=== PATIENT | female | born 1985 ===

== ENCOUNTER 2019-08-23 10:35 | Inpatient (IN) | payer BC ==
[2019-08-23] MEDS ORDERED: ALBUTEROL HFA INHALER INHALATION PRN (15:15)
[2019-08-23] MEDS ORDERED: NALOXONE 0.4 MG/ML 1 ML VIAL IV PRN (15:17)
[2019-08-23] MEDS ORDERED: HYDROcodone/APAP 5-325MG 1 EACH TAB PO PRN (15:17)
[2019-08-23] MEDS ORDERED: CYCLOBENZAPRINE 5 MG TAB PO PRN (15:24)
[2019-08-23] MEDS ORDERED: BETAMETHASONE DIPROPIONATE 0.05% CREAM 15 GM TUBE TOPICAL PRN (15:24)
[2019-08-23] MEDS ORDERED: FLUTICASONE 50MCG/SPRAY NASAL 16GM EA NOSTRIL PRN (15:24)
[2019-08-23] MEDS: ENOXAPARIN 40 MG/0.4 ML SYRINGE SQ SCH (15:32)
[2019-08-23] MEDS: SODIUM CHLORIDE 0.9% 1,000 ML IV SCH ×2 (15:32→22:50)
[2019-08-23] MEDS: ALBUTEROL HFA INHALER INHALATION SCH ×2 (15:34→20:01)
--- NOTE | 2019-08-23 15:49 | P.HPIM ---
History of Present Illness H&P Date: 08/23/19 Chief Complaint: shortness of breath Patient is a 34-year-old female with a past medical history of asthma that has moderate persistent asthma has been well controlled on her current medications and no hospitalizations in the last 4 years, GERD, and bipolar disorder who presented initially to [facility] with complaints of fever, cough, and shortness of breath. There she underwent an extensive evaluation. She had been found to be 87% on room air with ambulation and at rest was 90%. Per verbal report her chest x-ray showed bilateral infiltrates. Her COVID 19 tests came back positive. She was found have a white blood cell count 8.5 hemoglobin 14.3 hematocrit 45.4 platelets 163. In urgent 517 lactic acid 2, PT 11.9, INR 1.1, CRP 83, pro calcitonin 0.07, troponin 0.01, CK 34, magnesium 1.7, triglycerides 200, sodium 137, potassium 3.9, chloride 107, bicarb 16, BUN 14, creatinine 0.84, glucose 141, ferritin 231. There she received albuterol and a dose of Solu-Medrol. They didn't have beds available since she was transferred to our facility as part of the Covid relief effort. Patient seen and examined at bedside. She reports that for the last 2 weeks she isn't having muscle cramping, cough, and shortness of breath. She has been off of work. She was feeling okay up until yesterday when her shortness of breath became severely worse. She reports that is worse with movement and better with rest. Does not change with changes in position. She has noticed some wheezing. Her cough is nonproductive. She reports that she had 2 episodes of diarrhea over the last 24 hours. She is no longer having muscle cramping. She had a fever of 101 for her T-max over the last 1 week. She does feel lightheaded and dizzy upon standing and feels dehydrated. She denies any nausea or vomiting, belly pain, overt chest pain but does feel some tightness when trying to take a deep breath. She is feeling very winded and overall ill. She states that her eating and drinking for with diminished appetite. The last time she was hospitalized for anything with her asthma was approximately 4 years ago and she had pneumonia and spent 8 days in the hospital. Review of Systems Pertinent positives and negatives as discussed in HPI, a complete review of systems was performed and all other systems are negative. Past Medical History Past Medical History: Asthma, GERD/Reflux, Pneumonia Additional Past Medical History / Comment(s): Low back pain with facet arthropathy History of Any Multi-Drug Resistant Organisms: None Reported Past Surgical History: Adenoidectomy, Tonsillectomy Additional Past Surgical History / Comment(s): Cleft palate repair Past Psychological History: No Psychological Hx Reported Smoking Status: Never smoker Past Alcohol Use History: None Reported Past Drug Use History: None Reported Additional History: Works at [employer], no assistive devices - Past Family History Father Family Medical History: Diabetes Mellitus, Hypertension Medications and Allergies Home Medications Medication Instructions Recorded Confirmed Type Albuterol Sulfate [Ventolin HFA] 2 puff INHALATION RT-Q6H PRN 08/23/19 08/23/19 History Betamethasone Dipropionate 1 applic TOPICAL BID PRN 08/23/19 08/23/19 History [Diprolene AF 0.05% Cream] Budesonide-Formot 160-4.5 Mcg 2 puff INHALATION RT-BID 08/23/19 08/23/19 History [Symbicort 160-4.5 Mcg Inhaler] Cholecalciferol [Vitamin D3 (25 500 unit PO DAILY 08/23/19 08/23/19 History Mcg = 1000 Iu)] Cyclobenzaprine [Flexeril] 5 mg PO TID PRN 08/23/19 08/23/19 History Dupilumab [Dupixent] 300 mg SQ Q14D 08/23/19 08/23/19 History Fluticasone Propionate [Flonase 1 spray NASAL BID PRN 08/23/19 08/23/19 History Allergy Relief] Levonorgestrel-Ethin Estradiol 1 tab PO DAILY 08/23/19 08/23/19 History [Levora-28 Tablet] Montelukast [Singulair] 10 mg PO HS 08/23/19 08/23/19 History Sertraline HCl [Zoloft] 50 mg PO DAILY 08/23/19 08/23/19 History Topiramate 50 mg PO BID 08/23/19 08/23/19 History buPROPion HCL [Wellbutrin XL] 150 mg PO DAILY 08/23/19 08/23/19 History Allergies Allergy/AdvReac Type Severity Reaction Status Date / Time cephalexin [From Keflex] Allergy Rash/Hives Verified 08/23/19 13:54 Penicillins Allergy Rash/Hives Verified 08/23/19 13:54 Sulfa (Sulfonamide Allergy Rash/Hives Verified 08/23/19 13:54 Antibiotics) Physical Exam Osteopathic Statement: *. No significant issues noted on an osteopathic structural exam other than those noted in the History and Physical/Consult. Vitals: Vital Signs Temp Pulse Resp BP Pulse Ox 08/23/19 15:00 98.5 F 84 18 122/83 92 L 08/23/19 13:09 98.2 F 90 20 132/87 91 L Intake and Output 08/23/19 08/23/19 08/23/19 06:59 14:59 22:59 Other: Weight 107.726 kg General: Ill appearing, mild distress, appears older than stated age, Derm: no unusual rashes/lesions no unusual ecchymoses, warm, dry Head: atraumatic, normocephalic, symmetric Eyes: EOMI, no lid lag, anicteric sclera, ENT: Nose and ears atraumatic/symmetric, Neck: No thyromegaly, no cervical lymphadenopathy, trachea midline, supple Mouth: no lip lesion, mucus membranes dry Cardiovascular: S1S2 tachy, no murmur, positive posterior tibial pulse bilateral, no edema, capillary refill less than 2 seconds Lungs: decreased breath sound bilateral, faint wheeze anterior , no accessory muscle use, 3 word conversation dyspnea Abdominal: soft, nontender to palpation, no guarding, no appreciable organomegaly, normal bowel sounds Ext: no gross muscle atrophy, muscle strength 5 out of 5 in all 4 extremities grossly, no contractures, Neuro: CN II-XI grossly intact, light touch intact all 4 extremities, finger to nose within normal limits, Psych: Alert, oriented, appropriate affect Results Chest x-ray: report reviewed Thrombosis Risk Factor Assmnt - DVT/VTE Prophylaxis DVT/VTE Prophylaxis: Pharmacologic Prophylaxis ordered - Choose All That Apply Any of the Below Risk Factors Present?: Yes Each Factor Represents 1 point: Obesity (BMI >25), Oral contraceptives or hormone replacement therapy Other Risk Factors: No Other congenital or acquired thrombophilia - If yes, enter type in comment: No Thrombosis Risk Factor Assessment Total Risk Factor Score: 2 Thrombosis Risk Factor Assessment Level: Low Risk Assessment and Plan Assessment: Viral pneumonia due to COVID-19 + with acute hypoxic respiratory failure and acute exacerbation of asthma, costochondritis - Albuterol prn and shceduled, symbicort - start hydroxychloroquine, EKG at baseline and then tele - Pulm hygeine - Droplet and contact precautions - steroid burst and taper - singulair - flonase - zinc, vit C Arhtritis with CLBP - flexaril Bipolar - wellbutrin - zoloft Obesity, BMI 42.1 -Outpatient structured weight loss The patient is admitted with an anticipated greater than 2 midnight stay for evaluation of Covid pneumonia. CODE STATUS:Full DVT prophylaxis: Heparin Discussed with: Patient, nursing, ED physician from [place] Anticipated discharge date: 3-[address]: home A total of 70 minutes was spent on the care of this complex patient more than 50% of the time was spent in counseling and care coordination.
[2019-08-23 16:59] LABS: Glucose,Whole Blood 137 mg/dL (75-99)
[2019-08-23] MEDS: INSULIN ASPART (NovoLOG) 100 UNIT/ML VIAL SQ SCH (17:01)
[2019-08-23] MEDS: methylPREDNISolone SOD SUCCI 40 MG/ML 1 ML VIAL IV SCH ×2 (17:03→22:50)
[2019-08-23] MEDS: ZINC SULFATE 220 MG CAP PO SCH (17:03)
[2019-08-23] MEDS: SYMBICORT 160-4.5 MCG INHALER INHALATION SCH (20:27)
[2019-08-23] MEDS: MONTELUKAST 10 MG TAB PO SCH (20:30)
[2019-08-23] MEDS: HYDROXYCHLOROQUINE SULFATE 200 MG TAB PO SCH (20:30)
[2019-08-23] MEDS: TOPIRAMATE 25 MG TAB PO SCH (20:30)
[2019-08-24] MEDS: methylPREDNISolone SOD SUCCI 40 MG/ML 1 ML VIAL IV SCH ×4 (05:44→22:35)
[2019-08-24 06:48] LABS: Basophils % (A) 0 %; Eosinophils % (A) 1 %; HCT 41.3 % (34.0-46.0); HGB 12.7 gm/dL (11.4-16.0); Hypochromasia Slight; Lymphocytes # (A) 0.9 k/uL (1.0-4.8); Lymphocytes % (A) 17 %; MCH 26.1 pg (25.0-35.0); MCHC 30.9 g/dL (31.0-37.0); MCV 84.6 fL (80.0-100.0); Mean Platelet Volume 7.8; Monocytes # (A) 0.1 k/uL (0-1.0); Monocytes % (A) 3 %; Neutrophils # (A) 4.3 k/uL (1.3-7.7); Neutrophils % (A) 79 %; Platelet Count 184 k/uL (150-450); RBC 4.88 m/uL (3.80-5.40); RDW 13.5 % (11.5-15.5); WBC 5.4 k/uL (3.8-10.6)
[2019-08-24 06:58] LABS: Glucose,Whole Blood 173 mg/dL (75-99)
[2019-08-24 07:01] LABS: ALT 25 U/L (4-34); AST 23 U/L (14-36); African American GFR (CKD) >90 (>60 ml/min/1.73 sqM); Albumin 3.4 g/dL (3.5-5.0); Alkaline Phosphatase 66 U/L (38-126); Anion Gap 10 mmol/L; Blood Urea Nitrogen 11 mg/dL (7-17); Calcium 8.2 mg/dL (8.4-10.2); Carbon Dioxide 18 mmol/L (22-30); Chloride 113 mmol/L (98-107); Creatine Kinase 36 U/L (30-135); Glucose 161 mg/dL (74-99); LDH 537 U/L (313-618); Non-African American GFR(CKD) >90 (>60 ml/min/1.73 sqM); Phosphorus 2.6 mg/dL (2.5-4.5); Potassium 4.1 mmol/L (3.5-5.1); Sodium 141 mmol/L (137-145); Total Bilirubin 0.4 mg/dL (0.2-1.3); Total Protein 6.3 g/dL (6.3-8.2)
[2019-08-24] MEDS: INSULIN ASPART (NovoLOG) 100 UNIT/ML VIAL SQ SCH ×3 (07:19→17:50)
[2019-08-24] MEDS: ENOXAPARIN 40 MG/0.4 ML SYRINGE SQ SCH (07:19)
[2019-08-24] MEDS: ASCORBIC ACID 500 MG TAB PO SCH (07:20)
[2019-08-24] MEDS: HYDROXYCHLOROQUINE SULFATE 200 MG TAB PO SCH ×2 (07:20→20:08)
[2019-08-24] MEDS: SERTRALINE 50 MG TAB PO SCH (07:20)
[2019-08-24] MEDS: CHOLECALCIFEROL 1,000 UNIT TAB PO SCH (07:21)
[2019-08-24] MEDS: TOPIRAMATE 25 MG TAB PO SCH ×2 (07:21→20:07)
[2019-08-24] MEDS: buPROPion XL 150 MG TAB.ER.24H PO SCH (07:21)
[2019-08-24] MEDS: ZINC SULFATE 220 MG CAP PO SCH (07:21)
--- NOTE | 2019-08-24 07:50 | XR ---
EXAMINATION TYPE: XR chest 1V portable DATE OF EXAM: 08/24/2019 COMPARISON: 08/23/2019 INDICATION: Pneumonia TECHNIQUE: Single frontal view of the chest is obtained. FINDINGS: The heart size is normal. The pulmonary vasculature is normal. There is some worsening peripheral right midlung infiltrate. Some mild infiltrate is at the bilateral lung bases. IMPRESSION: 1. Developing right midlung patchy infiltrate. Correlate for pneumonia. 2. Bibasilar mild linear increased lung markings can be compatible some infiltrate or atelectasis.
[2019-08-24] MEDS: ALBUTEROL HFA INHALER INHALATION SCH ×4 (08:19→19:32)
[2019-08-24] MEDS: SYMBICORT 160-4.5 MCG INHALER INHALATION SCH ×2 (08:20→19:32)
[2019-08-24 10:41] LABS: Ferritin 233.9 ng/mL (10.0-291.0)
[2019-08-24 12:00] LABS: Glucose,Whole Blood 147 mg/dL (75-99)
[2019-08-24 15:15] LABS: Hemoglobin A1C 6.1 % (4.0-6.0)
--- NOTE | 2019-08-24 15:41 | P.PN ---
Subjective Progress Note Date: 08/24/19 (delayed charting seen at 1145) Principal diagnosis: shortness of breath Patient is a 34-year-old female with a past medical history of asthma that has moderate persistent asthma has been well controlled on her current medications and no hospitalizations in the last 4 years, GERD, and bipolar disorder who presented initially to [facility] with complaints of fever, cough, and shortness of breath. There she underwent an extensive evaluation. She had been found to be 87% on room air with ambulation and at rest was 90%. Per verbal report her chest x-ray showed bilateral infiltrates. Her COVID 19 tests came back positive. She was found have a white blood cell count 8.5 hemoglobin 14.3 hematocrit 45.4 platelets 163. In urgent 517 lactic acid 2, PT 11.9, INR 1.1, CRP 83, pro calcitonin 0.07, troponin 0.01, CK 34, magnesium 1.7, triglycerides 200, sodium 137, potassium 3.9, chloride 107, bicarb 16, BUN 14, creatinine 0.84, glucose 141, ferritin 231. There she received albuterol and a dose of Solu-Medrol. They didn't have beds available since she was transferred to our facility as part of the Covid relief effort. She was started on IV steroids, BD, and hydroxychloriquine. She had some improvement in her SOB on 08/23. Patient seen and examined at bedside. Breathing is slightly better than yesterday, still feeling very tired and winded. No n/v/d. No fevers or chills. Objective - Vital Signs Vital signs: Vital Signs Temp 97.6 F 08/24/19 11:00 Pulse 80 08/24/19 15:08 Resp 16 08/24/19 15:08 BP 153/80 08/24/19 11:00 Pulse Ox 91 L 08/24/19 11:00 Intake & Output 08/23/19 08/24/19 08/24/19 18:59 06:59 18:59 Intake Total 455 1310 Balance 455 1310 Weight 107.726 kg Intake: Intake, IV Titration 455 910 Amount Sodium Chloride 0.9% 1, 455 910 000 ml @ 130 mls/hr IV . Q7H42M [facility] Rx#:[id number] Oral 400 Other: Voiding Method Toilet Toilet # Voids 1 3 - Exam General: ill appearing , no distress, appears at stated age Derm: warm, dry Head: atraumatic, normocephalic, symmetric Eyes: EOMI, no lid lag, anicteric sclera Mouth: no lip lesion, mucus membranes moist Cardiovascular: S1S2 reg, no murmur, positive posterior tibial pulse bilateral, Lungs: decreased bs bilateral , no accessory muscle use Abdominal: soft, nontender to palpation, no guarding, no appreciable organomegaly Ext: no gross muscle atrophy, no edema, no contractures Neuro: CN II-XI grossly intact, no focal neuro deficits Psych: Alert, oriented, appropriate affect - Labs CBC & Chem 7: 08/24/19 06:16 08/24/19 06:16 Labs: Abnormal Lab Results - Last 24 Hours (Table) 08/23/19 08/24/19 08/24/19 Range/Units 16:56 06:16 06:16 MCHC 30.9 L (31.0-37.0) g/dL Lymphocytes # 0.9 L (1.0-4.8) k/uL Chloride (98-107) mmol/L Carbon Dioxide (22-30) mmol/L Glucose (74-99) mg/dL POC Glucose (mg/dL) 137 H (75-99) mg/dL Hemoglobin A1c 6.1 H (4.0-6.0) % Calcium (8.4-10.2) mg/dL Albumin (3.5-5.0) g/dL 08/24/19 08/24/19 08/24/19 Range/Units 06:16 06:56 11:56 MCHC (31.0-37.0) g/dL Lymphocytes # (1.0-4.8) k/uL Chloride 113 H (98-107) mmol/L Carbon Dioxide 18 L (22-30) mmol/L Glucose 161 H (74-99) mg/dL POC Glucose (mg/dL) 173 H 147 H (75-99) mg/dL Hemoglobin A1c (4.0-6.0) % Calcium 8.2 L (8.4-10.2) mg/dL Albumin 3.4 L (3.5-5.0) g/dL Assessment and Plan Assessment: Viral pneumonia due to COVID-19 + with acute hypoxic respiratory failure and acute exacerbation of asthma, costochondritis - Albuterol prn and shceduled, symbicort - Hydroxychloroquine, Tele - Pulm hygeine - Droplet and contact precautions - steroid burst and taper, anticipate to oral in AM - singulair - flonase - zinc, vit C Arhtritis with CLBP - flexaril Bipolar - wellbutrin - zoloft Obesity, BMI 42.1 -Outpatient structured weight loss DVT prophylaxis: Heparin Discussed with: Patient, nursing Anticipated discharge date: 2-[address]: home A total of 25 minutes was spent on the care of this complex patient more than 50% of the time was spent in counseling and care coordination.
[2019-08-24 17:06] LABS: Glucose,Whole Blood 161 mg/dL (75-99)
[2019-08-24] MEDS: SODIUM CHLORIDE 0.9% 1,000 ML IV SCH ×3 (17:49→22:39)
[2019-08-24] MEDS: MONTELUKAST 10 MG TAB PO SCH (20:06)
[2019-08-24] MEDS: MELATONIN 3 MG TABLET PO PRN (22:35)
[2019-08-25] MEDS: methylPREDNISolone SOD SUCCI 40 MG/ML 1 ML VIAL IV SCH ×2 (05:29→13:02)
[2019-08-25] MEDS: SODIUM CHLORIDE 0.9% 1,000 ML IV SCH ×2 (05:29→19:37)
[2019-08-25 06:56] LABS: Glucose,Whole Blood 156 mg/dL (75-99)
[2019-08-25 07:56] LABS: Basophils % (A) 0 %; Eosinophils % (A) 0 %; HCT 40.8 % (34.0-46.0); HGB 12.5 gm/dL (11.4-16.0); Lymphocytes # (A) 1.3 k/uL (1.0-4.8); Lymphocytes % (A) 12 %; MCH 25.7 pg (25.0-35.0); MCHC 30.5 g/dL (31.0-37.0); MCV 84.4 fL (80.0-100.0); Mean Platelet Volume 7.9; Monocytes # (A) 0.3 k/uL (0-1.0); Monocytes % (A) 3 %; Neutrophils % (A) 83 %; Platelet Count 193 k/uL (150-450); RBC 4.84 m/uL (3.80-5.40); RDW 13.8 % (11.5-15.5); WBC 10.8 k/uL (3.8-10.6)
[2019-08-25] MEDS: SYMBICORT 160-4.5 MCG INHALER INHALATION SCH ×2 (07:57→20:02)
[2019-08-25] MEDS: ALBUTEROL HFA INHALER INHALATION SCH ×4 (07:57→20:01)
[2019-08-25 08:18] LABS: ALT 43 U/L (4-34); AST 42 U/L (14-36); African American GFR (CKD) >90 (>60 ml/min/1.73 sqM); Albumin 3.3 g/dL (3.5-5.0); Alkaline Phosphatase 61 U/L (38-126); Anion Gap 10 mmol/L; Blood Urea Nitrogen 14 mg/dL (7-17); Calcium 8.3 mg/dL (8.4-10.2); Carbon Dioxide 18 mmol/L (22-30); Chloride 116 mmol/L (98-107); Glucose 142 mg/dL (74-99); Non-African American GFR(CKD) >90 (>60 ml/min/1.73 sqM); Potassium 4.4 mmol/L (3.5-5.1); Sodium 144 mmol/L (137-145); Total Bilirubin 0.4 mg/dL (0.2-1.3); Total Protein 6.1 g/dL (6.3-8.2)
[2019-08-25] MEDS: HYDROXYCHLOROQUINE SULFATE 200 MG TAB PO SCH ×2 (08:20→21:34)
[2019-08-25] MEDS: TOPIRAMATE 25 MG TAB PO SCH ×2 (08:20→21:34)
[2019-08-25] MEDS: SERTRALINE 50 MG TAB PO SCH (08:20)
[2019-08-25] MEDS: INSULIN ASPART (NovoLOG) 100 UNIT/ML VIAL SQ SCH ×3 (08:20→17:20)
[2019-08-25] MEDS: ENOXAPARIN 40 MG/0.4 ML SYRINGE SQ SCH (08:20)
[2019-08-25] MEDS: buPROPion XL 150 MG TAB.ER.24H PO SCH (08:21)
[2019-08-25] MEDS: CHOLECALCIFEROL 1,000 UNIT TAB PO SCH (08:21)
[2019-08-25] MEDS: ASCORBIC ACID 500 MG TAB PO SCH (08:21)
[2019-08-25] MEDS: ZINC SULFATE 220 MG CAP PO SCH (08:21)
[2019-08-25 12:13] LABS: Glucose,Whole Blood 136 mg/dL (75-99)
--- NOTE | 2019-08-25 16:18 | P.PN ---
Subjective Progress Note Date: 08/25/19 Principal diagnosis: shortness of breath Patient is a 34-year-old female with a past medical history of asthma that has moderate persistent asthma has been well controlled on her current medications and no hospitalizations in the last 4 years, GERD, and bipolar disorder who presented initially to [facility] with complaints of fever, cough, and shortness of breath. There she underwent an extensive evaluation. She had been found to be 87% on room air with ambulation and at rest was 90%. Per verbal report her chest x-ray showed bilateral infiltrates. Her COVID 19 tests came back positive. She was found have a white blood cell count 8.5 hemoglobin 14.3 hematocrit 45.4 platelets 163. In urgent 517 lactic acid 2, PT 11.9, INR 1.1, CRP 83, pro calcitonin 0.07, troponin 0.01, CK 34, magnesium 1.7, triglycerides 200, sodium 137, potassium 3.9, chloride 107, bicarb 16, BUN 14, creatinine 0.84, glucose 141, ferritin 231. There she received albuterol and a dose of Solu-Medrol. They didn't have beds available since she was transferred to our facility as part of the Covid relief effort. She was started on IV steroids, BD, and hydroxychloriquine. She had some improvement in her SOB on 08/23. Patient seen and examined at bedside. Still very winded and barely able to make it back and forth to the bathroom. Still with chest tightness and pain. No nausea, vomiting, diarrhea. Eating and drinking is slightly better. Objective - Vital Signs Vital signs: Vital Signs Temp 97.9 F 08/25/19 15:00 Pulse 78 08/25/19 15:00 Resp 18 08/25/19 15:00 BP 123/86 08/25/19 15:00 Pulse Ox 94 L 08/25/19 15:00 Intake & Output 08/24/19 08/25/19 08/25/19 18:59 06:59 18:59 Intake Total 8071 500 6574 Balance 7508 027 7788 Intake: Intake, IV Titration 910 455 910 Amount Sodium Chloride 0.9% 1, 910 455 910 000 ml @ 130 mls/hr IV . Q7H42M [facility] Rx#:[id number] Oral 400 250 Other: Voiding Method Toilet Toilet # Voids 3 1 3 - Exam General: ill appearing, no distress, appears at stated age Derm: warm, dry Head: atraumatic, normocephalic, symmetric Eyes: EOMI, no lid lag, anicteric sclera Mouth: no lip lesion, mucus membranes moist Cardiovascular: S1S2 reg, no murmur, positive posterior tibial pulse bilateral, Lungs: Course bs bilateral , no accessory muscle use Abdominal: soft, nontender to palpation, no guarding, no appreciable organomegaly Ext: no gross muscle atrophy, no edema, no contractures Neuro: CN II-XI grossly intact, no focal neuro deficits Psych: Alert, oriented, appropriate affect - Labs CBC & Chem 7: 08/25/19 06:55 08/25/19 06:55 Labs: Abnormal Lab Results - Last 24 Hours (Table) 08/24/19 08/25/19 08/25/19 Range/Units 17:05 06:54 06:55 WBC 10.8 H (3.8-10.6) k/uL MCHC 30.5 L (31.0-37.0) g/dL Neutrophils # 9.0 H (1.3-7.7) k/uL Chloride (98-107) mmol/L Carbon Dioxide (22-30) mmol/L Glucose (74-99) mg/dL POC Glucose (mg/dL) 161 H 156 H (75-99) mg/dL Calcium (8.4-10.2) mg/dL AST (14-36) U/L ALT (4-34) U/L Total Protein (6.3-8.2) g/dL Albumin (3.5-5.0) g/dL 08/25/19 08/25/19 Range/Units 06:55 12:11 WBC (3.8-10.6) k/uL MCHC (31.0-37.0) g/dL Neutrophils # (1.3-7.7) k/uL Chloride 116 H (98-107) mmol/L Carbon Dioxide 18 L (22-30) mmol/L Glucose 142 H (74-99) mg/dL POC Glucose (mg/dL) 136 H (75-99) mg/dL Calcium 8.3 L (8.4-10.2) mg/dL AST 42 H (14-36) U/L ALT 43 H (4-34) U/L Total Protein 6.1 L (6.3-8.2) g/dL Albumin 3.3 L (3.5-5.0) g/dL Assessment and Plan Assessment: Viral pneumonia due to COVID-19 + with acute hypoxic respiratory failure and acute exacerbation of asthma, costochondritis - Albuterol prn and scheduled, symbicort - Hydroxychloroquine, Tele - Pulm hygeine - Droplet and contact precautions - Change to prednisone today - singulair - flonase - zinc, vit C Arhtritis with CLBP - flexaril Bipolar - wellbutrin - zoloft Obesity, BMI 42.1 -Outpatient structured weight loss Anticipate home in AM if symptoms are stable, likely will need Home O2 at discharge. DVT prophylaxis: Heparin Discussed with: Patient, nursing Anticipated discharge date: 1-[address]: home A total of 25 minutes was spent on the care of this complex patient more than 50% of the time was spent in counseling and care coordination.
[2019-08-25 17:11] LABS: Glucose,Whole Blood 125 mg/dL (75-99)
[2019-08-25] MEDS: MONTELUKAST 10 MG TAB PO SCH (21:34)
[2019-08-25] MEDS: MELATONIN 3 MG TABLET PO PRN (21:34)
[2019-08-25] MEDS: ACETAMINOPHEN TAB 325 MG TAB PO PRN (21:41)
[2019-08-26 07:09] LABS: Glucose,Whole Blood 85 mg/dL (75-99)
--- NOTE | 2019-08-26 07:32 | XR ---
EXAMINATION TYPE: XR chest 1V portable DATE OF EXAM: 08/26/2019 COMPARISON: 08/24/2019 HISTORY: Pneumonia TECHNIQUE: Single frontal view of the chest is obtained. FINDINGS: Scattered interstitial and alveolar infiltrates noted and appear to have progressed slightly. The cardiac silhouette size is within normal limits. The osseous structures are intact. IMPRESSION: 1. Scattered interstitial and alveolar infiltrates noted and appear to have progressed slightly.
[2019-08-26] MEDS: SYMBICORT 160-4.5 MCG INHALER INHALATION SCH ×2 (07:50→20:13)
[2019-08-26] MEDS: ALBUTEROL HFA INHALER INHALATION SCH ×4 (07:50→20:03)
[2019-08-26] MEDS: ASCORBIC ACID 500 MG TAB PO SCH (08:02)
[2019-08-26] MEDS: predniSONE 20 MG TAB PO SCH (08:02)
[2019-08-26] MEDS: ENOXAPARIN 40 MG/0.4 ML SYRINGE SQ SCH (08:02)
[2019-08-26] MEDS: CHOLECALCIFEROL 1,000 UNIT TAB PO SCH (08:02)
[2019-08-26] MEDS: HYDROXYCHLOROQUINE SULFATE 200 MG TAB PO SCH ×2 (08:03→21:06)
[2019-08-26] MEDS: TOPIRAMATE 25 MG TAB PO SCH ×2 (08:03→21:06)
[2019-08-26] MEDS: SERTRALINE 50 MG TAB PO SCH (08:03)
[2019-08-26] MEDS: buPROPion XL 150 MG TAB.ER.24H PO SCH (08:03)
[2019-08-26] MEDS: ZINC SULFATE 220 MG CAP PO SCH (08:03)
[2019-08-26 08:20] LABS: Basophils % (A) 0 %; Eosinophils % (A) 0 %; HCT 41.1 % (34.0-46.0); HGB 12.7 gm/dL (11.4-16.0); Lymphocytes # (A) 2.7 k/uL (1.0-4.8); Lymphocytes % (A) 21 %; MCHC 30.8 g/dL (31.0-37.0); MCV 84.3 fL (80.0-100.0); Mean Platelet Volume 7.7; Monocytes # (A) 0.6 k/uL (0-1.0); Monocytes % (A) 4 %; Neutrophils # (A) 9.1 k/uL (1.3-7.7); Neutrophils % (A) 72 %; Platelet Count 210 k/uL (150-450); RBC 4.87 m/uL (3.80-5.40); RDW 13.7 % (11.5-15.5); WBC 12.7 k/uL (3.8-10.6)
[2019-08-26 08:31] LABS: ALT 52 U/L (4-34); AST 32 U/L (14-36); African American GFR (CKD) >90 (>60 ml/min/1.73 sqM); Albumin 3.4 g/dL (3.5-5.0); Alkaline Phosphatase 58 U/L (38-126); Anion Gap 13 mmol/L; Blood Urea Nitrogen 15 mg/dL (7-17); Calcium 8.3 mg/dL (8.4-10.2); Carbon Dioxide 19 mmol/L (22-30); Chloride 111 mmol/L (98-107); Glucose 86 mg/dL (74-99); LDH 553 U/L (313-618); Non-African American GFR(CKD) >90 (>60 ml/min/1.73 sqM); Potassium 3.8 mmol/L (3.5-5.1); Sodium 143 mmol/L (137-145); Total Bilirubin 0.3 mg/dL (0.2-1.3); Total Protein 6.1 g/dL (6.3-8.2)
--- NOTE | 2019-08-26 17:55 | P.PN ---
Subjective Progress Note Date: 08/26/19 Principal diagnosis: Covid pneumonia Patient is a 34-year-old female history of asthma moderate persistent, I Polar disorder [facility] and shortness of breath patient was found to be hypoxic 87% with ambulation chest x-ray showed bilateral infiltrates protocol with 19 test came back positive. Patient had a white count of 8.5, hemoglobin of 14.3, hematocrit of 45.4, platelet count 163 CRP of 83 [place] subtotaled in of 0.07 the 14 creatinine 0.84 with a glucose of 141. Patient received albuterol and Solu-Medrol she was transferred to our facility as part of Covid relief effort she was started on IV steroids, hydroxychloroquine, zinc Patient today complained of still feeling very winded feeling she is wheezing and still requiring 3 L of oxygen Objective - Vital Signs Vital signs: Vital Signs Temp 98.1 F 08/26/19 15:00 Pulse 69 08/26/19 15:00 Resp 18 08/26/19 15:00 BP 154/96 08/26/19 15:00 Pulse Ox 95 08/26/19 15:00 Intake & Output 08/25/19 08/26/19 08/26/19 18:59 06:59 18:59 Intake Total 1160 480 Balance 1160 480 Intake: Intake, IV Titration 910 Amount Sodium Chloride 0.9% 1, 910 000 ml @ 130 mls/hr IV . Q7H42M [facility] Rx#:[id number] Oral 250 480 Other: Voiding Method Toilet # Voids 3 2 3 - Constitutional General appearance: Present: mild distress - Respiratory Respiratory: bilateral: diminished, wheezing - Cardiovascular Rhythm: regular - Gastrointestinal General gastrointestinal: Present: normal bowel sounds - Psychiatric Psychiatric: Present: A&O x's 3 - Labs CBC & Chem 7: 08/26/19 07:21 08/26/19 07:21 Labs: Abnormal Lab Results - Last 24 Hours (Table) 08/26/19 08/26/19 Range/Units 07:21 07:21 WBC 12.7 H (3.8-10.6) k/uL MCHC 30.8 L (31.0-37.0) g/dL Neutrophils # 9.1 H (1.3-7.7) k/uL Chloride 111 H (98-107) mmol/L Carbon Dioxide 19 L (22-30) mmol/L Calcium 8.3 L (8.4-10.2) mg/dL ALT 52 H (4-34) U/L Total Protein 6.1 L (6.3-8.2) g/dL Albumin 3.4 L (3.5-5.0) g/dL Assessment and Plan (1) Acute and chronic respiratory failure with hypoxia Narrative/Plan: Continue to monitor closely, continue oxygen supplementation need to titrate and wean Current Visit: Yes Status: Acute Code(s): J96.21 - ACUTE AND CHRONIC RESPIRATORY FAILURE WITH HYPOXIA SNOMED Code(s): 15259468 (2) COVID-19 Narrative/Plan: Continue Tarquinio, zinc, steroids Current Visit: Yes Status: Acute Code(s): U07.1 - COVID-19 SNOMED Code(s): 465729342 Plan: Patient stated was significant hypoxia still symptomatic with dyspnea continue inpatient management
[2019-08-26] MEDS: ACETAMINOPHEN TAB 325 MG TAB PO PRN (21:06)
[2019-08-26] MEDS: MONTELUKAST 10 MG TAB PO SCH (21:06)
[2019-08-26] MEDS: MELATONIN 3 MG TABLET PO PRN (21:06)
[2019-08-27] MEDS: ALBUTEROL HFA INHALER INHALATION SCH ×2 (07:30→10:46)
[2019-08-27] MEDS: SYMBICORT 160-4.5 MCG INHALER INHALATION SCH (07:30)
[2019-08-27 07:45] VITALS: RESP 18
[2019-08-27] MEDS: CHOLECALCIFEROL 1,000 UNIT TAB PO SCH (08:12)
[2019-08-27] MEDS: HYDROXYCHLOROQUINE SULFATE 200 MG TAB PO SCH (08:12)
[2019-08-27] MEDS: ASCORBIC ACID 500 MG TAB PO SCH (08:12)
[2019-08-27] MEDS: predniSONE 20 MG TAB PO SCH (08:12)
[2019-08-27] MEDS: ENOXAPARIN 40 MG/0.4 ML SYRINGE SQ SCH (08:12)
[2019-08-27] MEDS: SERTRALINE 50 MG TAB PO SCH (08:12)
[2019-08-27] MEDS: TOPIRAMATE 25 MG TAB PO SCH (08:13)
[2019-08-27] MEDS: ZINC SULFATE 220 MG CAP PO SCH (08:13)
[2019-08-27] MEDS: buPROPion XL 150 MG TAB.ER.24H PO SCH (08:13)
--- NOTE | 2019-08-27 12:40 | P.DS ---
Providers Date of admission: 08/23/19 13:00 Expected date of discharge: 08/27/19 Attending physician: Paige Corona DO Primary care physician: Stated None - Discharge Diagnosis(es) (1) Acute and chronic respiratory failure with hypoxia Patient is a 34-year-old female with a history of asthma moderate persistent controlled on her current medications no recent hospitalization for 4 years. Patient has a history of GERD and bipolar she initially presented to [facility] whoosh fever cough and shortness of breath. Patient's found to be hypoxic 87% on room air with ambulation and rest 90% chest x-ray showed bilateral i nfiltrates. Patient cold with 19th tests came out positive she is followed to have a leukocytosis of 8.5, hemoglobin 14.3, hematocrit 45.8. Pravachol 163. Patient had a UN 14, creatinine 0.84, ferritin of 231 she is seeing albuterol and Solu-Medrol transferred as part of the covert release offered because of bed unavailability. Patient was placed on ProcalAmine L she was febrile she denied any nausea or vomiting patient required oxygen supplementation. Patient was seen by me today she was able to ambulate without any hypoxic and will be currently stable for discharge. Current Visit: Yes Status: Acute (2) COVID-19 Patient will continue will plaquenil x 2 days ; she was counselled about need for further isolation Current Visit: Yes Status: Acute Hospital Course: Patient is currently ambulating without any hypoxia or need for supplemental oxygen. She will continue on her usual asthma medication at discharge and was given a prescription for DuoNeb's Time spent 35 minutes. Patient Condition at Discharge: Good Plan - Discharge Summary New Discharge Prescriptions: New Ipratropium-Albuterol Nebulize [Duoneb 0.5 mg-3 mg/3 ml Soln] 3 ml INHALATION Q4-6H #30 neb No Action Budesonide-Formot 160-4.5 Mcg [Symbicort 160-4.5 Mcg Inhaler] 2 puff INHALATION RT-BID Levonorgestrel-Ethin Estradiol [Levora-28 Tablet] 1 tab PO DAILY Topiramate 50 mg PO BID Montelukast [Singulair] 10 mg PO HS Sertraline HCl [Zoloft] 50 mg PO DAILY Fluticasone Propionate [Flonase Allergy Relief] 1 spray NASAL BID PRN PRN Reason: Allergy Symptoms Cholecalciferol [Vitamin D3 (25 Mcg = 1000 Iu)] 500 unit PO DAILY Dupilumab [Dupixent] 300 mg SQ Q14D buPROPion HCL [Wellbutrin XL] 150 mg PO DAILY Betamethasone Dipropionate [Diprolene AF 0.05% Cream] 1 applic TOPICAL BID PRN PRN Reason: Skin Irritation Albuterol Sulfate [Ventolin HFA] 2 puff INHALATION RT-Q6H PRN PRN Reason: Shortness Of Breath Cyclobenzaprine [Flexeril] 5 mg PO TID PRN PRN Reason: Muscle Spasm Hydroxychloroquine Sulfate [Plaquenil] 200 mg PO BID Discharge Medication List Albuterol Sulfate [Ventolin HFA] 2 puff INHALATION RT-Q6H PRN 08/23/19 [History] Betamethasone Dipropionate [Diprolene AF 0.05% Cream] 1 applic TOPICAL BID PRN 08/23/19 [History] Budesonide-Formot 160-4.5 Mcg [Symbicort 160-4.5 Mcg Inhaler] 2 puff INHALATION RT-BID 08/23/19 [History] Cholecalciferol [Vitamin D3 (25 Mcg = 1000 Iu)] 500 unit PO DAILY 08/23/19 [History] Cyclobenzaprine [Flexeril] 5 mg PO TID PRN 08/23/19 [History] Dupilumab [Dupixent] 300 mg SQ Q14D 08/23/19 [History] Fluticasone Propionate [Flonase Allergy Relief] 1 spray NASAL BID PRN 08/23/19 [History] Levonorgestrel-Ethin Estradiol [Levora-28 Tablet] 1 tab PO DAILY 08/23/19 [History] Montelukast [Singulair] 10 mg PO HS 08/23/19 [History] Sertraline HCl [Zoloft] 50 mg PO DAILY 08/23/19 [History] Topiramate 50 mg PO BID 08/23/19 [History] buPROPion HCL [Wellbutrin XL] 150 mg PO DAILY 08/23/19 [History] Hydroxychloroquine Sulfate [Plaquenil] 200 mg PO BID 08/27/19 [History] Ipratropium-Albuterol Nebulize [Duoneb 0.5 mg-3 mg/3 ml Soln] 3 ml INHALATION Q4-6H #30 neb 08/27/19 [Rx] Activity/Diet/Wound Care/Special Instructions: Follow up PCP: Dr. Andreea Guzman Follow included COVID-19 discharge instructions Discharge Disposition: HOME SELF-CARE
[2019-08-27 14:31] VITALS: BP 142/88; PULSE 75; TEMP 97.7
== END 2019-08-27 14:55 | disposition home or self-care (01) | DRG 177 ==
LOC: 4SSUR 13:00
PROVIDERS: ADMIT Internal Medicine; ATTEND Internal Medicine
DX: U07.1 COVID-19 (principal); J12.89 Other viral pneumonia; J96.21 Acute and chronic respiratory failure with hypoxia; Z68.41 Body mass index [BMI] 40.0-44.9, adult; K21.9 Gastro-esophageal reflux disease without esophagitis; F31.9 Bipolar disorder, unspecified; E66.9 Obesity, unspecified; M94.0 Chondrocostal junction syndrome [Tietze]; M19.90 Unspecified osteoarthritis, unspecified site; J45.909 Unspecified asthma, uncomplicated; Z87.01 Personal history of pneumonia (recurrent); Z90.89 Acquired absence of other organs; Z82.49 Family history of ischemic heart disease and other diseases of the circulatory system; Z87.730 Personal history of (corrected) cleft lip and palate; Z83.3 Family history of diabetes mellitus; Z79.899 Other long term (current) drug therapy; Z79.51 Long term (current) use of inhaled steroids; Z88.1 Allergy status to other antibiotic agents; Z88.0 Allergy status to penicillin; Z88.2 Allergy status to sulfonamides
CPT/HCPCS: 71045; 80053; 82550; 82728; 83036; 83615; 83735; 84100; 84145; 85025; 85379; 93005; 94640